=== PATIENT | female | born 1990 ===

== ENCOUNTER → 2016-09-05 | Outpatient (CLI) | payer OTHER ==
--- NOTE | 2016-09-05 09:01 | US ---
Pelvic Ultrasound (Transabdominal) with color flow and spectral Doppler History: Left lower quadrant pain for 5 weeks. History of polycystic ovary syndrome.. Comparison: No prior studies available Findings: The pelvis was examined through a moderately distended bladder from TRANSABDOMINAL approach. The francesca ent was unable to tolerate transvaginal study. UTERUS: Size: 7.4 x 5.3 x 2.7 cm in longitudinal, AP, and transverse projections. Orientation: Anteflexed. Uterine Masses: None seen. Endometrium: Normal contour measuring about 4 mm in thickness. ADNEXA: No adnexal masses. Normal number of normal-appearing small follicles are seen associated wit h each ovary. Right ovary size: 3.9 x 1.7 x 2.8 cm Left ovary size: 4.5 x 1.9 x 2.5 cm Color flow and spectral Doppler: Normal color flow imaging with normal Doppler waveform bilaterally. Free fluid: None. Other findings: None. Impression: 1. Normal pelvic ultrasound for age.
== END ==
LOC: FIMAGING 07:24
PROVIDERS: ATTEND Nurse Practitioner
DX: R10.32 Left lower quadrant pain (principal); E28.2 Polycystic ovarian syndrome

== ENCOUNTER → 2017-11-06 | Outpatient (CLI) | payer OTHER | LOC: BMCIMAGING 16:32 | PROVIDERS: ATTEND Emergency Medicine | DX: K76.0 Fatty (change of) liver, not elsewhere classified (principal) ==